=== PATIENT | male | born 1970 | race Caucasian/White ===

== ENCOUNTER 2017-09-18 08:18 | Day surgery (SDC) | payer BC ==
[~2017-09-18 08:18] MED LIST: Lactated Ringers 1,000 ML IV SCH; Sodium Chloride 0.9% 10 ML Syringe FLUSH PRN
[2017-09-18] MEDS ORDERED: Propofol 200 MG/20 ML SDV IV ONE (10:00)
[2017-09-18] MEDS ORDERED: Midazolam 1 MG/ML 2 ML SDV IV ONE (10:00)
--- NOTE | 2017-09-18 10:48 | PCM.OPNOTE ---
- General Post-Op/Procedure Note Date of Surgery/Procedure: 09/18/17 Operative Procedure(s): egd with bx. c scope Findings: gastroduodenitis esophagitis normal colon Pre Op Diagnosis: epigatric abd pain. hx of colon polyps Post-Op Diagnosis: gastroduodenitis. esophagitis. normal colon Anesthesia Technique: MAC Primary Surgeon: Mejia Lo Anesthesia Provider: Dimitrsi Hampton Pathology: stomach duodenum and distal esophagus Complications: None Condition: Good Free Text/Narrative:: see dictation
--- NOTE | 2017-09-18 16:21 | OR ---
DATE OF OPERATION: 09/18/2017 SURGEON: Mejia Lo MD PROCEDURE PERFORMED: Esophagogastroduodenoscopy with cold forceps biopsy and colonoscopy. PREOPERATIVE DIAGNOSES: History of epigastric abdominal pain and history of colon polyps. POSTOPERATIVE DIAGNOSES: Gastroduodenitis, esophagitis, and normal colon. INDICATION FOR PROCEDURE: This is a 47-year-old white male, who has a known endoscopic history of gastritis. He presents now with a history of epigastric abdominal discomfort, essentially does not want to take his proton pump inhibitor as he feels it interferes with his digestion. In addition, the patient has a history of colon polyps, is due for a followup C-scope. He was offered and accepted both procedures. DESCRIPTION OF PROCEDURE: After an excellent IV sedation was administered, the bite block was inserted. The flexible endoscope was passed without difficulty down the patient's esophagus into the stomach. The stomach was insufflated and scope was passed through the pylorus to the second portion of the duodenum and slowly withdrawn. The following findings were noted: Duodenum, inflammation in the first portion of the duodenum. Biopsies taken. Stomach, mild gastritis. Biopsies were taken. Esophagus, at the distal esophagus there were some signs of irritation. Biopsies were taken of this area as well. The remainder of the esophageal exam was unremarkable. Our attention was then turned to the colon, digital rectal exam was performed. Again, no marked abnormality was noted. Flexible colonoscope was inserted and advanced to the cecum without difficulty. The prep was excellent, scope was withdrawn, and the mucosa was inspected. The following findings were noted: Ascending colon, unremarkable. Transverse colon, unremarkable. Descending colon, unremarkable. Sigmoid and rectum unremarkable. Colon was deflated as the scope was removed. The patient tolerated the procedure well, and was taken to recovery room in good condition. /[id number] /MODL
== END 2017-09-18 11:43 | disposition home or self-care (01) ==
LOC: FB.SDS 08:18
PROVIDERS: ATTEND Surgery
DX: Z12.11 Encounter for screening for malignant neoplasm of colon (principal); K29.80 Duodenitis without bleeding; K29.50 Unspecified chronic gastritis without bleeding; K20.9 Esophagitis, unspecified; Z79.899 Other long term (current) drug therapy; Z86.010 Personal history of colon polyps
CPT/HCPCS: 43239; 45378; 88305; 88313; 88342; J2250; J2704; J7120